=== PATIENT | female | born 1980 | race Caucasian/White ===

== ENCOUNTER 2023-09-21 06:38 | Inpatient (IN) | payer OTHER, SELFPAY ==
[2023-09-20 23:52] VITALS: BP 130/62
[2023-09-21] VITALS (20 sets, daily range): BP systolic 105–137; BP diastolic 54–77; BMI 24.2
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
[2023-09-21 02:49] LABS: % Basophils 0.7 % (0-2); % Eosinophils 0.5 % (0-6); % Immature Granulocytes 0.3 % (0-0.5); % Lymphocytes 32.5 % (20.5-51.1); Absolute Basophils 0.1 10^3/uL (0-0.2); Absolute Lymphocytes 2.9 10^3/uL (1.2-3.4); Absolute Monocytes 0.9 10^3/uL (0.1-0.6); Absolute Neutrophils 4.9 10^3/uL (1.4-6.5); Mean Corp Hgb Conc. 28.4 g/dL (33.0-37.0); Mean Corpuscular Hgb 14.9 pg (27.0-31.0); Mean Corpuscular Volume 52.3 fL (81.0-99.0); Nucleated Red Blood Cells % 0 %; Platelet Count 763 10^3/uL (130-400); Red Cell Dist. Width 22.8 % (11.5-14.5); White Blood Cell Count 8.8 10^3/uL (4.8-10.8)
[2023-09-21] MEDS: ROCEPHIN 1.42860000000000009 MG IM (02:56)
[2023-09-21] MEDS: VIBRAMYCIN 100 MG PO (02:56)
[2023-09-21] MEDS: FLAGYL 500 MG PO ×3 (02:56→20:32)
[2023-09-21 03:10] LABS: HCG, Serum Qualitative Screen Negative
[2023-09-21 03:14] LABS: Urine Albumin Trace (Neg - Trace); Urine Bilirubin Negative (Negative); Urine Character Clear (Clear); Urine Color Yellow; Urine Glucose Negative (Negative); Urine Ketone Negative (Negative); Urine Leukocyte 2+ (Negative); Urine Nitrite Negative (Negative); Urine Occult Blood Negative (Negative); Urine Specific Gravity 1.015 (<1.030); Urine Urobilinogen Negative (Neg - 1+)
[2023-09-21 03:15] LABS: ALT (SGPT) 24 U/L (0-35); AST (SGOT) 45 U/L (14-36); Albumin 4.1 g/dl (3.5-5.0); Alkaline Phosphatase 120 U/L (38-126); Blood Urea Nitrogen 18 mg/dl (7-17); Calcium 8.9 mg/dl (8.4-10.2); Carbon Dioxide 22 mmol/L (22-30); Chloride 107 mmol/L (98-107); Glucose 97 mg/dl (70-99); Potassium 3.4 mmol/L (3.5-5.1); Sodium 135 mmol/L (135-145); Total Bilirubin 0.5 mg/dl (0.2-1.3); eGFR > 60.00
[2023-09-21 03:16] LABS: Hematocrit 20.4 % (37.0-47.0); Hemoglobin 5.8 g/dL (12.0-16.0)
[2023-09-21 03:33] LABS: Urine Squamous Cell 26-30 /LPF (Few)
[2023-09-21 03:35] LABS: Urine Bacteria Few (Negative); Urine Red Blood Cell None Seen /HPF (0-2)
[2023-09-21 04:31] LABS: Amphetamines Positive (Negative); Barbiturates Negative (Negative); Benzodiazepines Negative (Negative); Buprenorphine Negative (Negative); Cocaine Negative (Negative); Marijuana Negative (Negative); Methadone Negative (Negative); Methamphetamines Positive (Negative); Opiates Negative (Negative); Phencyclidine Negative (Negative); Tricyclic Antidepressants Negative (Negative)
[2023-09-21 04:40] LABS: Fentanyl, Urine Negative (Negative)
--- NOTE | 2023-09-21 05:21 | EDRN ---
Dr. Smith at bedside working on admission
--- NOTE | 2023-09-21 05:30 | EDRN ---
Patient ambulated to restroom and back in bed resting comfortably and about to start blood
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
[2023-09-21 08:38] LABS: Reticulocyte Count 0.6 % (0.4-2.8)
[2023-09-21] MEDS: PROTONIX IV 40 MG IV ×2 (08:50→20:32)
[2023-09-21] MEDS: NSS (PRESERVATIVE FREE) 10 ML IV ×2 (08:51→20:32)
[2023-09-21] MEDS: VIBRAMYCIN 260 MG IV ×2 (08:52→20:33)
[2023-09-21] MEDS: ATIVAN 0.5 MG IV (08:55)
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
[2023-09-21 09:00] LABS: Iron 25 ug/dl (37-170)
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
[2023-09-21 09:09] LABS: Percent Saturation 5 % (20-50); Total Iron Binding Capacity 430 ug/dl (265-497)
[2023-09-21 09:34] LABS: Ferritin 5.7 ng/ml (6.24-137)
[2023-09-21 10:16] LABS: Vitamin B12 277 pg/ml (239-931)
--- NOTE | 2023-09-21 10:20 | PTCARENOTE ---
This nurse attempted to complete pt. admission at this time. Unable to complete d/t pt. drowsy. VSS, will continue to monitor and report on pt.
--- NOTE | 2023-09-21 13:41 | W.PN.UPDATE ---
Update Note
Progress Note Update
Seen by Dr. Smith earlier this morning.
Admitted for vaginal itching concerning for vaginosis. Initiated on antibiotic.
Noted to have severe anemia. Patient hemodynamically stable. No obvious external bleeding. Noted to have prior esophagitis and peptic ulcer disease. Prior gastric bypass.
Transfused PRBC. Check iron stores. Await GI input.
--- NOTE | 2023-09-21 14:20 | PTCARENOTE ---
Report given to Erika RAMOS on .
--- NOTE | 2023-09-21 15:00 | PTCARENOTE ---
Received pt in bed from 4E with 4E RN at bedside. Blood transfusing at this time. VSS. Pt AAOx3 but drowsy. Oriented to room. Pt offers no complaints at this time. Call [facility] within reach.
--- NOTE | 2023-09-21 16:09 | CON.ONC ---
Impression
Impression
microcytic anemia
iron deficiency
vaginosis
Plan
Plan
1. Microcytic anemia - iron deficiency
-patient appears to have a h/o chronic microcytic anemia w/ baseline hemoglobin as per records - 8-9g/dl
-hemoglobin 5.8g/dl on presentation
-iron studies c/w iron deficiency
-agree w/ PRBCs transfusion
-w/ ongoing active infection - vaginonsis on IV antibiotics - will hold on IV iron supplementation
-oral iron supplementation could be initiated as tolerated - though absorption may be an issue w/ h/o gastric bypass
-check B12 /folic acid levels
-GI evaluation
Will continue to follow with you.
Patient History
History of Present Illness
43y/o female seen in hematology consultation regarding iron deficiency anemia.
The patient presented to the [facility] ER w/ increased fatigue and lethargy, as well as vaginal itching. Labs revealed significant anemia, hemoglobin 5.8g/dl, w/ significant microcytosis w/ MCV 52.3. Iron studies revealed ferritin of 5.7
c/w iron deficiency. Platelet count was elevated at 763, which can be seen w/ severe iron deficiency.
She has being transfused, and is feeling slightly better. No SOB at rest or chest pain. She has a h/o gastric bypass surgery, and has been iron deficient in the past. She denies blood in her stool or urine.
Past-Medical/Surgical History
PMH:
iron deficiency anemia
Obesity
Alopecia
Annette's Thyroiditis
Chronic Microcytic Anemia
PUD / Esophagitis
PSH:
Gastric Bypass
Cholecystectomy
x 2
Social History
Tobacco: Smoker (Current every day smoker.)
Alcohol: None
Drug: Other (Methamphetamines)
Family History
Family History: Not pertinent
Allergies: NKDA
Patient Medication
Medication Instructions Recorded Confirmed Last Taken Type
No Meds [No Current Medications] 09/21/23 09/21/23 Unknown History
Active Medications
Generic Name Dose Route Start Last Admin
Trade Name Freq PRN Reason Stop Dose Admin
Acetaminophen 650 mg 09/21/23 08:14
Acetaminophen 325 Mg Tablet PO 10/19/23 08:13
Q4HPRN PRN
Mild Pain / Temp > 101 F
Doxycycline Hyclate 100 mg/ 260 mls @ 260 mls/hr 09/21/23 08:00 09/21/23 08:52
Sodium Chloride IV 260 mls
Q12H RACHEL Administration
Lorazepam 0.5 mg 09/21/23 08:14 09/21/23 08:55
Lorazepam 2 Mg/Ml Vial IV 10/19/23 08:13 0.5 mg
Q6HPRN PRN Administration
Anxiety / Agitation
Metronidazole 500 mg 09/21/23 08:14 09/21/23 08:52
Metronidazole 500 Mg Tablet PO 500 mg
BID RACHEL Administration
Pantoprazole Sodium 40 mg 09/21/23 08:14 09/21/23 08:50
Pantoprazole Sodium 40 Mg/10 Ml Vial IV 10/19/23 08:13 40 mg
BID RACHEL Administration
Sodium Chloride 0 flush 09/21/23 09:00
Sodium Chloride 0.9% (Flush) Syringe IV 10/19/23 08:59
PER PROTOCOL RACHEL
Sodium Chloride 10 ml 09/21/23 08:00 09/21/23 08:51
Sodium Chloride 0.9% (Preservative Free) 10 Ml Vial IV 10/19/23 07:59 10 ml
BID RACHEL Administration
Sodium Chloride 0.25 ml 09/21/23 08:32
Nss (Pf) 10 Ml Vial For Ativan 0.5 Mg Dose IV 10/19/23 08:31
Q6HPRN PRN
IV LORAZEPAM DILUTION
Review of Systems
-
ROS was performed w/ pertinent findings as per HPI.
Physical Exam
-
General: No Apparent Distress
HEENT: Negative Jaundice
Cardiology: Normal Sinus Rhythm
Pulmonary: Clear
Extremities: No C/C/E
Labs
Lab Results
WBC 8.8 10^3/uL (4.8-10.8) 09/21/23 02:24
RBC 3.90 10^6/uL (4.20-5.40) L 09/21/23 02:24
Hgb 5.8 g/dL (12.0-16.0) L* 09/21/23 02:24
Hct 20.4 % (37.0-47.0) L* 09/21/23 02:24
MCV 52.3 fL (81.0-99.0) L 09/21/23 02:24
MCH 14.9 pg (27.0-31.0) L 09/21/23 02:24
MCHC 28.4 g/dL (33.0-37.0) L 09/21/23 02:24
RDW 22.8 % (11.5-14.5) H 09/21/23 02:24
Plt Count 763 10^3/uL (130-400) H 09/21/23 02:24
MPV 8.0 fL (7.4-10.4) 09/21/23 02:24
Abs Immat Gran (auto) 0.0 10^3/uL (0-0.05) 09/21/23 02:24
Absolute Neuts (auto) 4.9 10^3/uL (1.4-6.5) 09/21/23 02:24
Absolute Lymphs (auto) 2.9 10^3/uL (1.2-3.4) 09/21/23 02:24
Absolute Monos (auto) 0.9 10^3/uL (0.1-0.6) H 09/21/23 02:24
Absolute Eos (auto) 0.0 10^3/uL (0-0.7) 09/21/23:
Absolute Basos (auto) 0.1 10^3/uL (0-0.2) 09/21/23:
Immature Gran % 0.3 % (0-0.5) 09/21/23:
Neutrophils % 56.0 % (42.2-75.2) 09/21/23:
Lymphocytes % 32.5 % (20.5-51.1) 09/21/23:
Monocytes % 10.0 % (1.7-9.3) H 09/21/23:
Eosinophils % 0.5 % (0-6) 09/21/23:
Basophils % 0.7 % (0-2) 09/21/23:
Creatinine 1.0 mg/dL (0.6-1.0) 09/21/23:
Vital Signs
Vital Signs
Temp Pulse Resp BP Pulse Ox
97.8 F 78 18 121/67 100
09/21/23 15:53 09/21/23 15:53 09/21/23 15:53 09/21/23 15:53 09/21/23 15:53
[2023-09-22 03:50] VITALS: BP 139/71
[2023-09-22 06:13] LABS: Hematocrit 25.7 % (37.0-47.0); Mean Corp Hgb Conc. 28.4 g/dL (33.0-37.0); Mean Corpuscular Hgb 16.6 pg (27.0-31.0); Mean Corpuscular Volume 58.3 fL (81.0-99.0); Mean Platelet Volume 8.3 fL (7.4-10.4); Platelet Count 727 10^3/uL (130-400); Red Blood Cell Count 4.41 10^6/uL (4.20-5.40)
[2023-09-22 06:14] LABS: Hemoglobin 7.3 g/dL (12.0-16.0)
[2023-09-22 06:33] LABS: Blood Urea Nitrogen 14 mg/dl (7-17); Calcium 8.4 mg/dl (8.4-10.2); Carbon Dioxide 21 mmol/L (22-30); Chloride 106 mmol/L (98-107); Estimated Creatinine Clearance 90 ml/min; Glucose 99 mg/dl (70-99); Sodium 139 mmol/L (135-145); eGFR > 60.00
[2023-09-22 07:20] VITALS: BP 120/70
[2023-09-22] MEDS: VIBRAMYCIN 260 MG IV (09:04)
[2023-09-22] MEDS: FLAGYL 500 MG PO ×2 (09:05→20:57)
[2023-09-22] MEDS: PROTONIX IV 40 MG IV ×2 (09:06→20:57)
[2023-09-22] MEDS: NSS (PRESERVATIVE FREE) 10 ML IV ×2 (09:06→20:58)
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
[2023-09-22 11:30] VITALS: BP 110/79
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
[2023-09-22] MEDS: KCL 40 MEQ PO (12:50)
[2023-09-22] MEDS: CYANOCOBALAMIN 1000 MCG IM (12:51)
[2023-09-22 15:00] VITALS: BP 115/63
[2023-09-22] MEDS: ANCEF 5 IV ×2 (17:00→23:50)
[2023-09-22 19:10] VITALS: BP 122/74
[2023-09-22] MEDS: VIBRAMYCIN 100 MG PO (20:57)
[2023-09-22 21:58] LABS: IgA 217 mg/dl (70-400)
[2023-09-22] MEDS: ZOFRAN 4 MG IV (22:46)
[2023-09-22] MEDS: ATIVAN 0.5 MG IV (22:47)
[2023-09-22] MEDS: NSS (PRESERVATIVE FREE) 0.25 ML IV (22:47)
[2023-09-22 23:46] VITALS: BP 126/78
[2023-09-23] VITALS (13 sets, daily range): BP systolic 14–126; BP diastolic 68–83
--- NOTE | 2023-09-23 | PTCARENOTE ---
Patient room odorous of cigarettes. Patient significant other at bedside, denies smoking in room. Cigarette butt found in cup. Patient educated on dangers of smoking in hospital room. Verbalizes understanding. Patient refuses nicotine patch.
[2023-09-23 05:05] LABS: Hematocrit 26.4 % (37.0-47.0); Hemoglobin 7.6 g/dL (12.0-16.0); Mean Corp Hgb Conc. 28.8 g/dL (33.0-37.0); Mean Corpuscular Volume 58.9 fL (81.0-99.0); Mean Platelet Volume 8.1 fL (7.4-10.4); Platelet Count 703 10^3/uL (130-400); Red Blood Cell Count 4.48 10^6/uL (4.20-5.40); Red Cell Dist. Width 27.6 % (11.5-14.5); White Blood Cell Count 7.2 10^3/uL (4.8-10.8)
[2023-09-23 05:37] LABS: Blood Urea Nitrogen 13 mg/dl (7-17); Calcium 8.3 mg/dl (8.4-10.2); Carbon Dioxide 20 mmol/L (22-30); Chloride 107 mmol/L (98-107); Estimated Creatinine Clearance 90 ml/min; Glucose 119 mg/dl (70-99); Potassium 3.4 mmol/L (3.5-5.1); Sodium 138 mmol/L (135-145); eGFR > 60.00
[2023-09-23] MEDS: VIBRAMYCIN 100 MG PO ×2 (09:15→20:33)
[2023-09-23] MEDS: FLAGYL 500 MG PO ×2 (09:15→20:33)
[2023-09-23] MEDS: CYANOCOBALAMIN 1000 MCG IM (09:15)
[2023-09-23] MEDS: PROTONIX IV 40 MG IV ×2 (09:16→20:35)
[2023-09-23] MEDS: NSS (PRESERVATIVE FREE) 10 ML IV ×2 (09:16→20:35)
[2023-09-23] MEDS: ANCEF 5 IV ×3 (09:17→23:45)
[2023-09-23] MEDS: TYLENOL 650 MG PO (12:26)
[2023-09-23 12:55] LABS: Endomysial IgA Antibody Titer <1:10 (<1:10)
[2023-09-23 13:41] LABS: tTG IgA Antibody 7.7 EU/ml (0-19); tTG IgG Antibody 8.7 EU/ml (0-19)
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
[2023-09-23 17:13] LABS: HIV Combo Negative (Negative)
[2023-09-24] VITALS (10 sets, daily range): BP systolic 80–134; BP diastolic 43–87
[2023-09-24] MEDS: ProAmatine 5 MG PO (03:55)
[2023-09-24] MEDS: NSS 250 IV (03:55)
[2023-09-24 04:21] LABS: % Basophils 1.1 % (0-2); % Eosinophils 1.2 % (0-6); % Immature Granulocytes 0.3 % (0-0.5); % Lymphocytes 37.2 % (20.5-51.1); % Monocytes 8.9 % (1.7-9.3); % Neutrophils 51.3 % (42.2-75.2); Absolute Basophils 0.1 10^3/uL (0-0.2); Absolute Eosinophils 0.1 10^3/uL (0-0.7); Absolute Lymphocytes 2.5 10^3/uL (1.2-3.4); Absolute Monocytes 0.6 10^3/uL (0.1-0.6); Absolute Neutrophils 3.4 10^3/uL (1.4-6.5); Hematocrit 26.1 % (37.0-47.0); Hemoglobin 7.4 g/dL (12.0-16.0); Mean Corp Hgb Conc. 28.4 g/dL (33.0-37.0); Mean Corpuscular Hgb 16.9 pg (27.0-31.0); Mean Corpuscular Volume 59.6 fL (81.0-99.0); Mean Platelet Volume 8.2 fL (7.4-10.4); Nucleated Red Blood Cells % 0 %; Platelet Count 698 10^3/uL (130-400); Red Blood Cell Count 4.38 10^6/uL (4.20-5.40); Red Cell Dist. Width 27.9 % (11.5-14.5); White Blood Cell Count 6.6 10^3/uL (4.8-10.8)
[2023-09-24 04:39] LABS: Blood Urea Nitrogen 15 mg/dl (7-17); Calcium 8.3 mg/dl (8.4-10.2); Carbon Dioxide 25 mmol/L (22-30); Chloride 107 mmol/L (98-107); Estimated Creatinine Clearance 90 ml/min; Glucose 94 mg/dl (70-99); Potassium 3.8 mmol/L (3.5-5.1); Sodium 137 mmol/L (135-145); eGFR > 60.00
--- NOTE | 2023-09-24 06:24 | PTCARENOTE ---
Addendum entered by Rayne Soliz RN 09/24/23 11:20:
blood completed by this nurse at 0935. vitals post transfusion were 126/72 with a 59 HR. pt tolerated transfusion and ate majority of breakfast.
Original Note:
At about 0330, patient BP 80/44. Notified ULTRASOUND TECH. 250ml NSS bolus and 5 mg midodrine PO ordered and given. See MAR. Recheck of BP 88/46 manual. Patient H/H 7.4/26.1. Notified ULTRASOUND TECH. Ordered 1 unit PRBCs. Patient is currently being transfused and is
tolerating it well. See TAR. Patient is not presenting or complaining of any transfusion reactions and is resting comfortably in bed.
--- NOTE | 2023-09-24 06:54 | W.PN.ONC2 ---
Today's Communication / Plan
-
EGD results noted.
- Esophageal eosinophilic esophagitis suggested. Biopsied taken. Pending.
- A Jane-en-Y anastomosis was seen with possible ulceration. Biopsied.
Transfuse. Receiving unit # 3
B12 and iron replacement (IV iron can be considered eventually). PRBC should be sufficient short term.
Impression
Impression
iron deficiency anemia
borderline B12 deficiency
vaginosis
Hx Jane en Y gastric bypass
Plan
Plan
1. Microcytic anemia - iron deficiency
-patient appears to have a h/o chronic microcytic anemia w/ baseline hemoglobin as per records - 8-9g/dl
-hemoglobin 5.8g/dl on presentation
-iron studies c/w iron deficiency
-agree w/ PRBCs transfusion
-w/ ongoing active infection - vaginonsis on IV antibiotics - will hold on IV iron supplementation
-oral iron supplementation could be initiated as tolerated - though absorption may be an issue w/ h/o gastric bypass
-low B12 noted. Repletion begun. Check methylmalonic acid level.
-EGD results noted: Esophageal eosinophilic esophagitis suggested. A Jane-en-Y anastomosis was seen with possible ulceration. Both areas biopsied.
Subjective/Objective
Chief Complaint
ACS Heme F/U
Subjective
No c/o. S/P EGD yesterday. Currently getting PRBC transfusion (unit # 3 of 3 - 2 previously given for HgB 5.8 on presentation.
Vital Signs:
Vital Signs
Temp Pulse Resp BP Pulse Ox
97.9 F 48 14 92/48 99
09/24/23 06:30 09/24/23 06:30 09/24/23 06:30 09/24/23 06:30 09/24/23 03:36
Lab Results:
Laboratory Data
WBC 6.6 10^3/uL (4.8-10.8) 09/24/23 03:52
Hgb 7.4 g/dL (12.0-16.0) L 09/24/23 03:52
Plt Count 698 10^3/uL (130-400) H 09/24/23 03:52
eGFR > 60.00 09/24/23 03:52
Physical Exam
HEENT: No Jaundice
Cardiology: S1 and S2
Pulmonary: Clear
GI: Soft
[2023-09-24] MEDS: VIBRAMYCIN 100 MG PO ×2 (09:24→20:38)
[2023-09-24] MEDS: CYANOCOBALAMIN 1000 MCG IM (09:24)
[2023-09-24] MEDS: FLAGYL 500 MG PO ×2 (09:24→20:38)
[2023-09-24] MEDS: PROTONIX IV 40 MG IV ×2 (09:24→20:38)
[2023-09-24] MEDS: NSS (PRESERVATIVE FREE) 10 ML IV ×2 (09:24→20:39)
[2023-09-24] MEDS: ANCEF 5 IV ×3 (09:26→23:59)
--- NOTE | 2023-09-24 09:35 | CM ---
Patient for transfusion today, pending further assessments. Per Physician patient will need note for court when discharged. Patient declined referrals or supports. CM will continue to follow for discharge planning needs.
Plan; note from doctor.
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
[2023-09-24 19:02] LABS: Amphetamines Negative (Negative); Barbiturates Negative (Negative); Benzodiazepines Negative (Negative); Buprenorphine Negative (Negative); Cocaine Negative (Negative); Marijuana Negative (Negative); Methadone Negative (Negative); Methamphetamines Negative (Negative); Opiates Negative (Negative); Phencyclidine Negative (Negative); Tricyclic Antidepressants Negative (Negative)
[2023-09-24] MEDS: TYLENOL 650 MG PO (20:38)
[2023-09-25 02:59] VITALS: BP 124/73
[2023-09-25 05:08] LABS: Hematocrit 31.5 % (37.0-47.0); Mean Corp Hgb Conc. 29.5 g/dL (33.0-37.0); Mean Corpuscular Hgb 18.2 pg (27.0-31.0); Mean Corpuscular Volume 61.6 fL (81.0-99.0); Platelet Count 694 10^3/uL (130-400); Red Blood Cell Count 5.11 10^6/uL (4.20-5.40); Red Cell Dist. Width 31.3 % (11.5-14.5); White Blood Cell Count 7.3 10^3/uL (4.8-10.8)
[2023-09-25 05:23] LABS: ALT (SGPT) 12 U/L (0-35); AST (SGOT) 24 U/L (14-36); Albumin 3.2 g/dl (3.5-5.0); Alkaline Phosphatase 109 U/L (38-126); Blood Urea Nitrogen 13 mg/dl (7-17); Calcium 8.7 mg/dl (8.4-10.2); Carbon Dioxide 23 mmol/L (22-30); Chloride 111 mmol/L (98-107); Estimated Creatinine Clearance 90 ml/min; Glucose 84 mg/dl (70-99); Magnesium 1.7 mg/dl (1.6-2.3); Potassium 3.6 mmol/L (3.5-5.1); Sodium 137 mmol/L (135-145); Total Bilirubin 0.4 mg/dl (0.2-1.3); Total Protein 6.1 g/dl (6.3-8.2); eGFR > 60.00
[2023-09-25 05:43] LABS: Hemoglobin 9.3 g/dL (12.0-16.0)
[2023-09-25 07:25] VITALS: BP 123/70
--- NOTE | 2023-09-25 07:42 | W.PN.ONC2 ---
Today's Communication / Plan
-
Heme will sign off. Continue B12 replacement currently IM and start PO iron when off antibiotics.
B12 can be switched to PO at D/C: 1,000 mcg PO QD
Iron Sulfate: 325 PO QOD
Repeat CBC, ferritin, Fe/TIBC, B12 levels in 4-6 weeks through PCP
Heme will sign off. Call if needed.
Impression
Impression
iron deficiency anemia
borderline B12 deficiency
vaginosis
Hx Jane en Y gastric bypass
Plan
Plan
1. Microcytic anemia - iron deficiency
-patient appears to have a h/o chronic microcytic anemia w/ baseline hemoglobin as per records - 8-9g/dl
-hemoglobin 5.8g/dl on presentation
-iron studies c/w iron deficiency
-agree w/ PRBCs transfusion
-w/ ongoing active infection - vaginonsis on IV antibiotics - will hold on IV iron supplementation
-oral iron supplementation could be initiated as tolerated - though absorption may be an issue w/ h/o gastric bypass
-low B12 noted. Repletion begun. Check methylmalonic acid level.
-EGD results noted: Esophageal eosinophilic esophagitis suggested. A Jane-en-Y anastomosis was seen with possible ulceration. Both areas biopsied. No dysplasia or malignancy.
Subjective/Objective
Chief Complaint
ACS Heme F/U
Subjective
No new c/o
Vital Signs:
Vital Signs
Temp Pulse Resp BP Pulse Ox
98.2 F 61 16 124/73 99
09/25/23 02:59 09/25/23 02:59 09/25/23 02:59 09/25/23 02:59 09/25/23 02:59
Lab Results:
Laboratory Data
WBC 7.3 10^3/uL (4.8-10.8) 09/25/23 04:22
Hgb 9.3 g/dL (12.0-16.0) L D 09/25/23 04:22
Plt Count 694 10^3/uL (130-400) H 09/25/23 04:22
eGFR > 60.00 09/25/23 04:22
Physical Exam
PE unchanged
Orders
Orders
Orders From Last 24 Hours
09/24/23 12:09
Methylmalonic Acid [S] Routine
[2023-09-25] MEDS: ANCEF 5 IV ×2 (09:16→15:43)
[2023-09-25] MEDS: FLAGYL 500 MG PO (09:16)
[2023-09-25] MEDS: CYANOCOBALAMIN 1000 MCG IM (09:16)
[2023-09-25] MEDS: VIBRAMYCIN 100 MG PO (09:16)
[2023-09-25] MEDS: PROTONIX IV 40 MG IV (09:17)
[2023-09-25] MEDS: NSS (PRESERVATIVE FREE) 10 ML IV (09:17)
--- NOTE | 2023-09-25 10:12 | PN.CDI ---
CDI
- -
CDI:
Physician Documentation Request
Admit Date: 09/21/23 06:38
Dear Doctor Amari,
Please review the following and provide your response in the progress notes.
Clinical Indicators:
Pt admitted with Iron Deficiency Anemia/ Possible recurrent Anastomotic ulcer
Potassium levels are as below / Pt did get 40 meq PO KCL on 09/22
09/21/23 09/22/23 09/23/23
:24 04:47 04:24
Potassium 3.4 L 3.0 L 3.4 L
Based on the above, could you clarify in the progress notes, the appropriate diagnosis, if significant, that supports the above abnormalities and additional evaluation, monitoring and/or treatment rendered:
Hypokalemia
Abnormal lab value of clinical insignificance
Other
Use of terms such as suspected, likely, concern for, or probable (associated with a specific diagnosis that is being evaluated, monitored, or treated as if it exists) are acceptable and can be coded in the inpatient setting, when documented at the
time of discharge.
Thank you,
Estrella Briggs RN
CDI Specialist
[place] [facility]
Please use your independent medical judgment in providing your response.
[2023-09-25 11:10] VITALS: BP 120/67
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
--- NOTE | 2023-09-25 12:25 | CM ---
Addendum entered by Calli Nye 09/25/23 12:43:
Patient indicated that she would like list of shelters, CM will provide. Nursing aware.
Original Note:
Patient for discharge home. Physician met with patient, requesting note regarding court date. Patient continues to decline supports and plan is to leave hospital with her boyfriend. CM will continue to follow for discharge planning needs.
Plan; homeless, declining supports
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
[2023-09-25 15:20] VITALS: BP 111/65
--- NOTE | 2023-09-25 16:23 | PTCARENOTE ---
pt discharged at 1623. pt showered after tele and IV in left forearm were removed. pt was given a list of shelters within the area but stated she wanted to go outside and smoke a cig before she called any family members to take her anywhere. pt left
with belongings and did not want wheelchair transport to the main entrance.
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
[2023-09-27 10:21] LABS: Methylmalonic Acid <0.10 umol/L (0.00-0.40)
== END 2023-09-25 16:21 | disposition home or self-care (01) | DRG 378 ==
LOC: 2 NORTH 06:38
PROVIDERS: Internal Medicine Gastroenterology; Internal Medicine Hematology & Oncology; Nurse Practitioner Family; ADMITTING PHYSICIAN Hospitalist; ATTENDING PHYSICIAN Internal Medicine; CONSULT PHYSICIAN Internal Medicine Gastroenterology; EMERGENCY PHYSICIAN Student in an Organized Health Care Education/Training Program; OTHER PHYSICIAN Internal Medicine Hematology & Oncology
PROC: 30233N1 Transfusion of Nonautologous Red Blood Cells into Peripheral Vein, Percutaneous Approach (ICD-10-PCS; 2023-09-21)
PROC: 0DB58ZX Excision of Esophagus, Via Natural or Artificial Opening Endoscopic, Diagnostic (ICD-10-PCS; 2023-09-23)
PROC: 0DB68ZX Excision of Stomach, Via Natural or Artificial Opening Endoscopic, Diagnostic (ICD-10-PCS; 2023-09-23)
DX: K28.4 Chronic or unspecified gastrojejunal ulcer with hemorrhage (principal); T74.21XA Adult sexual abuse, confirmed, initial encounter; Z59.00 Homelessness unspecified; D75.839 Thrombocytosis, unspecified; N76.0 Acute vaginitis; D50.9 Iron deficiency anemia, unspecified; E66.9 Obesity, unspecified; F17.200 Nicotine dependence, unspecified, uncomplicated; F32.A Depression, unspecified; F43.10 Post-traumatic stress disorder, unspecified; L65.9 Nonscarring hair loss, unspecified; K20.0 Eosinophilic esophagitis; K22.89 Other specified disease of esophagus; I95.9 Hypotension, unspecified; E87.6 Hypokalemia; F15.10 Other stimulant abuse, uncomplicated; Z98.84 Bariatric surgery status; I10 Essential (primary) hypertension
CPT/HCPCS: 88305; 88312; 80048; 80053; 80306; 80307; 81003; 81015; 82607; 82728; 82746; 82784; 83516; 83540; 83550; 83735; 83921; 84443; 84703; 85025; 85027; 85045; 86231; 86850; 86900; 86901; 86920; 87070; 87077; 87086; 87147; 87389; 87491; 87591; 96374; 99291; 99406; P9016